=== PATIENT | male | born 1945 | race African-American/Black ===

== ENCOUNTER 2023-10-14 18:49 | Emergency (ER) | payer MEDICARE, MEDICAID ==
[~2023-10-14] VITALS: Ht 177.8 cm; Wt 64.0 kg
[~2023-10-14 18:49] MED LIST: APIX5TAB PO; ATOR20TA65 PO; DIGO250T PO; DORZ10DR8 EACHEYE; FAMO40TA7 PO; FINA5TAB11 PO; FURO-151 PO; IPRA3AMP9 HHN; LATA2.5D14 EACHEYE; METO100T16 PO; POTA-204 PO; TAMS-11 PO
[2023-10-14 19:36] LABS: BASOPHILS % 0.1 % (0.0-2.0); EOSINOPHILS % 0.3 % (0.0-5.0); HEMATOCRIT. 34.3 % (42.0-52.0); HEMOGLOBIN. 11.3 g/dL (14.0-18.0); LYMPHOCYTES % 11.7 % (20.0-50.0); MEAN CORPUSCULAR HEMOGLOBIN 29.8 pg (28.0-32.0); MEAN CORPUSCULAR HGB CONC 32.9 g/dL (31.0-37.0); MEAN CORPUSCULAR VOLUME 90.5 fL (80.0-94.0); MEAN PLATELET VOLUME 6.6 fl (7.4-10.4); MONOCYTES % 7.9 % (2.0-8.0); PLATELET 195 x1000/uL (130-400); RED BLOOD CELL COUNT 3.78 mill/uL (4.7-6.1); WHITE BLOOD COUNT 7.2 x1000/uL (4.5-11.0)
[2023-10-14 19:44] LABS: CHLORIDE 100 mEq/L (98-107); POTASSIUM 3.9 mEq/L (3.5-5.1); SODIUM 139 mEq/L (136-145)
[2023-10-14 19:45] LABS: CARBON DIOXIDE 37 mEq/L (21-32)
[2023-10-14 19:46] LABS: CALCIUM 9.1 mg/dL (8.7-10.4)
[2023-10-14 19:47] LABS: INR 1.2; PARTIAL THROMBOPLASTIN TIME 28.1 sec (23.4-31.0); PROTHROMBIN TIME 12.8 sec (9.6-11.0)
[2023-10-14 19:50] LABS: CREATININE 0.6 mg/dL (0.6-1.3); GLUCOSE 161 mg/dL (70-105); UREA NITROGEN BLOOD 15 mg/dL (9-23)
[2023-10-14 19:51] LABS: TROPONIN I HIGH SENSITIVITY 19 ng/L (3.0-53)
[2023-10-14] MEDS: METHYLPREDNISOLONE SOD SUCC 125MG/2ML (ACT-O-VIAL) IV STA (19:55)
[2023-10-14] MEDS: IPRATROPIUM BROMIDE (0.02%) 0.5MG/2.5ML NEB HHN STA (20:38)
[2023-10-14] MEDS ORDERED: P50 MT (20:48)
[2023-10-14] MEDS: ALBUTEROL (0.083%) 2.5MG/3ML NEB HHN SCH ×2 (20:49→22:40)
[2023-10-14 22:40] VITALS: PULSE 98; RESP 20; O2SAT 99
[2023-10-14] MEDS: IPRATROPIUM BROMIDE (0.02%) 0.5MG/2.5ML NEB HHN NR (22:40)
[2023-10-14 23:19] VITALS: BP 125/83; PULSE 109; RESP 20; TEMP 97.7
== END 2023-10-14 23:50 ==
LOC: ER 19:54
DX: J44.9 Chronic obstructive pulmonary disease, unspecified (principal); J45.901 Unspecified asthma with (acute) exacerbation; I10 Essential (primary) hypertension; E11.9 Type 2 diabetes mellitus without complications; E78.00 Pure hypercholesterolemia, unspecified; Z20.822 Contact with and (suspected) exposure to COVID-19; Z88.0 Allergy status to penicillin; Z88.3 Allergy status to other anti-infective agents; Z79.899 Other long term (current) drug therapy; Z98.890 Other specified postprocedural states
CPT/HCPCS: 99285; 96374; 71045; 87426; 80048; 83880; 85025; 85610; 85730; 84484; 87804 ×2; 36415; 93005; 94644; J2919; 94640